=== PATIENT | male | born 1985 | race Caucasian/White ===

== ENCOUNTER 2023-11-24 21:35 | Emergency (ER) | payer BC ==
[2023-11-24 22:17] VITALS: RESP 18; TEMP 98.8
[2023-11-24] MEDS: ACETAMINOPHEN TAB 325 MG TAB PO STA (22:39)
[2023-11-24] MEDS: IBUPROFEN 800 MG TAB PO STA (22:40)
--- NOTE | 2023-11-25 01:17 | ED ---
Lower Extremity Injury HPI - General Chief Complaint: Extremity Injury, Lower Stated Complaint: R Foot Injury Time Seen by Provider: 11/24/23 22:13 Source: patient Mode of arrival: ambulatory Limitations: physical limitation - History of Present Illness Initial Comments: 38-year-old male presenting with chief complaint of toe injury. Patient dropped a 20 pound battery onto his right fourth and fifth toes. He has skin avulsions to these toes. The bleeding is controlled. His tetanus is up-to-date. No numbness tingling or weakness. He still has good range of motion. - Related Data Previous Rx's Medication Instructions Recorded Cephalexin [Keflex] 500 mg PO Q12HR 7 Days #14 cap 11/25/23 Allergies Allergy/AdvReac Type Severity Reaction Status Date / Time No Known Allergies Allergy Verified 11/24/23 22:07 Review of Systems ROS Statement: Those systems with pertinent positive or pertinent negative responses have been documented in the HPI. ROS Other: All systems not noted in ROS Statement are negative. Past Medical History Past Medical History: No Reported History History of Any Multi-Drug Resistant Organisms: None Reported Past Surgical History: No Surgical Hx Reported Smoking Status: Never smoker Past Alcohol Use History: None Reported Past Drug Use History: None Reported General Exam General appearance: alert, in no apparent distress Head exam: Present: atraumatic, normocephalic Eye exam: Present: normal appearance, EOMI Neck exam: Present: normal inspection Respiratory exam: Absent: respiratory distress Cardiovascular Exam: Present: regular rate Right Foot/Toe exam: Present: tenderness (Tenderness fourth and fifth toes), abrasion, ecchymosis Neurological exam: Present: alert, oriented X3 Psychiatric exam: Present: normal affect, normal mood Skin exam: Present: abrasion (Skin abrasion fourth and fifth toes) Course Vital Signs 11/24/23 11/25/23 21:59 01:42 Temperature 98.8 F Pulse Rate 94 82 Respiratory 18 18 Rate Blood Pressure 152/98 169/88 O2 Sat by Pulse 96 98 Oximetry Medical Decision Making - Medical Decision Making Was pt. sent in by a medical professional or institution (, [facility], WAXING MACHINE OPERATOR HELPER, urgent care, hospital, or half-way...) When possible be specific @ -No Did you speak to anyone other than the patient for history (EMS, parent, family, police, friend...)? What history was obtained from this source @ -No Did you review nursing and triage notes (agree or disagree)? Why? @ -I reviewed and agree with nursing and triage notes Were old charts reviewed (outside hosp., previous admission, EMS record, old EKG, old radiological studies, urgent care reports/EKG's, half-way records)? Report findings @ -No old charts were reviewed Differential Diagnosis (chest pain, altered mental status, abdominal pain women, abdominal pain men, vaginal bleeding, weakness, fever, dyspnea, syncope, headache, dizziness, GI bleed, back pain, seizure, CVA, palpatations, mental health, musculoskeletal)? @ -Differential includes fracture, sprain, laceration, this is not an all- inclusive list EKG interpreted by me (3pts min.). @ -As above X-rays interpreted by me (1pt min.). @ -X-ray shows fracture of the distal phalanx of the fifth toe CT interpreted by me (1pt min.). @ -None done U/S interpreted by me (1pt. min.). @ -None done What testing was considered but not performed or refused? (CT, X-rays, U/S, labs)? Why? @ -None What meds were considered but not given or refused? Why? @ -None Did you discuss the management of the patient with other professionals (professionals i.e. , PA, WAXING MACHINE OPERATOR HELPER, lab, RT, psych nurse, rn social work, machine operator transplanter, teacher, community chest officer, case management coordinator)? Give summary @ -No Was smoking cessation discussed for >3mins.? @ -No Was critical care preformed (if so, how long)? @ -No Were there social determinants of health that impacted care today? How? (Home lessness, low income, unemployed, alcoholism, drug addiction, transportation, low edu. Level, literacy, decrease access to med. care, fpc, rehab)? @ -No Was there de-escalation of care discussed even if they declined (Discuss DNR or withdrawal of care, Hospice)? DNR status @ -No What co-morbidities impacted this encounter? (DM, HTN, Smoking, COPD, CAD, Cancer, CVA, ARF, Chemo, Hep., AIDS, mental health diagnosis, sleep apnea, morbid obesity)? @ -None Was patient admitted / discharged? Hospital course, mention meds given and route, prescriptions, significant lab abnormalities, going to OR and other pertinent info. @ -38-year-old male presenting with chief complaint of toe injury. Dropped a 20 pound battery onto the right fourth and fifth toes. There are skin avulsions. Digital block performed toes are irrigated Surgifoam is applied. X- ray shows fracture of the distal phalanx of the fifth toe. The toes are denys taped together. Started on Keflex for open fracture. He is instructed to follow-up with his PCP. Follow-up with PCP. Report back to ER with any new or worsening symptoms. Discussed return parameters and answered all questions. Patient conveyed verbal understanding and agreed to the plan. I discussed this case in detail with my attending Dr. Solo Undiagnosed new problem with uncertain prognosis? @ -No Drug Therapy requiring intensive monitoring for toxicity (Heparin, Nitro, Insulin, Cardizem)? @ -No Were any procedures done? @ -No Diagnosis/symptom? @ -Toe fracture Acute, or Chronic, or Acute on Chronic? @ -Acute Uncomplicated (without systemic symptoms) or Complicated (systemic symptoms)? @ -Uncomplicated Side effects of treatment? @ -No Exacerbation, Progression, or Severe Exacerbation? @ -No Poses a threat to life or bodily function? How? (Chest pain, USA, PA, pneumonia, PE, COPD, DKA, ARF, appy, cholecystitis, CVA, Diverticulitis, Homicidal, Suicidal, threat to staff... and all critical care pts) @ -No Disposition Clinical Impression: Toe fracture Disposition: HOME SELF-CARE Condition: Good Instructions (If sedation given, give patient instructions): Toe Fracture (ED) Additional Instructions: Follow-up with your PCP. Report back to ER with any new or worsening symptoms. Prescriptions: Cephalexin [Keflex] 500 mg PO Q12HR 7 Days #14 cap Is patient prescribed a controlled substance at d/c from ED?: No Referrals: Elmer Rios DO [Primary Care Provider] - 1-2 days Time of Disposition: 01:17
--- NOTE | 2023-11-25 01:20 | XR ---
EXAM: XR Right Toes, 2 or More Views CLINICAL HISTORY: ITS.REASON XR Reason: 4th and 5th toe injury TECHNIQUE: Frontal, lateral and oblique views of the toes of the right foot. COMPARISON: No relevant prior studies available. IMPRESSION: Fracture of the distal phalanx of the fifth toe.
[2023-11-25 02:13] VITALS: BP 169/88; PULSE 82
== END 2023-11-25 02:16 | disposition home or self-care (01) ==
LOC: EC 21:35
DX: S92.911A Unspecified fracture of right toe(s), initial encounter for closed fracture (principal); X58.XXXA Exposure to other specified factors, initial encounter
CPT/HCPCS: 99283

== ENCOUNTER → 2024-01-05 | Outpatient (CLI) | payer BC ==
--- NOTE | 2024-01-07 14:03 | CA ---
Transthoracic Echo Report Name: Reece Moon Age: 38 Gender: M : 1985 Exam Date: 01/05/2024 15:28 Exam Location: [facility] Ht (in): 72 Wt (lb): 215 Ordering Physician: Elmer Rios DO Attending/Referring Phys: Elmer Rios DO Property Condition Assessor Sandrine Rogers RDCS Procedure CPT: Indications: I10 ESSENTIAL (PRIMARY) HYPERTENSION Cardiac Hx: Technical Quality: Fair Contrast 1: Total Dose (mL): Contrast 2: Total Dose (mL): MEASUREMENTS (Male / Female) Normal Values 2D ECHO LV Diastolic Diameter PLAX 3.6 cm 4.2 - 5.9 / 3.9 - 5.3 cm LV Systolic Diameter PLAX 2.9 cm IVS Diastolic Thickness 1.5 cm 0.6 - 1.0 / 0.6 - 0.9 cm LVPW Diastolic Thickness 1.5 cm 0.6 - 1.0 / 0.6 - 0.9 cm LV Relative Wall Thickness 0.8 RV Internal Dim ED PLAX 2.5 cm LA Systolic Diameter LX 3.6 cm 3.0 - 4.0 / 2.7 - 3.8 cm LV Diastolic Volume MOD BP 43.2 cm??? 67 - 155 / 56 - 104 cm??? LV Systolic Volume MOD BP 19.6 cm??? 22 - 58 / 19 - 49 cm??? LV Ejection Fraction MOD BP 54.8 % >= 55 % LV Cardiac Index MOD BP 1128.0 cm???/min???m??? LV Diastolic Volume MOD 4C 39.5 cm??? LV Systolic Volume MOD 4C 18.3 cm??? LV Ejection Fraction MOD 4C 53.6 % LV Cardiac Index MOD 4C 1009.4 cm???/min???m??? LV Diastolic Length 4C 6.5 cm LV Systolic Length 4C 5.4 cm LV Diastolic Volume MOD 2C 43.8 cm??? LV Systolic Volume MOD 2C 18.5 cm??? LV Ejection Fraction MOD 2C 57.6 % LV Cardiac Index MOD 2C 1201.9 cm???/min???m??? LV Diastolic Length 2C 7.1 cm LV Systolic Length 2C 6.4 cm LA Volume 43.9 cm??? 18 - 58 / 22 - 52 cm??? LA Volume Index 19.6 cm???/m??? 16 - 28 cm???/m??? Ascending Aorta Diameter 3.3 cm M-MODE Aortic Root Diameter MM 3.5 cm LA Systolic Diameter MM 3.7 cm LA Ao Ratio MM 1.1 DOPPLER MV Area PHT 5.2 cm??? Mitral E Point Velocity 57.2 cm/s Mitral A Point Velocity 65.9 cm/s Mitral E to A Ratio 0.9 MV Deceleration Time 147.2 ms FINDINGS Left Ventricle Left ventricular ejection fraction is estimated at 55-60%. Moderately increased septal wall thickness. Left ventricular cavity size normal. No obvious regional wall motion abnormalities. Right Ventricle Normal right ventricular size and function. Right ventricular systolic pressure within normal limits. Right ventricular hypertrophy. Right Atrium Normal right atrial size. Left Atrium Normal left atrial size. Mitral Valve Structurally normal mitral valve. Trace mitral regurgitation. Aortic Valve Trileaflet aortic valve. No aortic valve stenosis or regurgitation. Tricuspid Valve Structurally normal tricuspid valve. Trace tricuspid regurgitation. Pulmonic Valve Structurally normal pulmonic valve. Trace pulmonic regurgitation. No pulmonic stenosis. Pericardium No pericardial or pleural effusion. Aorta Normal size aortic root and proximal ascending aorta. CONCLUSIONS Normal LV size and systolic function preserved systolic function Previewed by: Dr. Nate Wiseman MD (Electronically Signed) Final Date: 07 January 2024 14:02
== END | disposition home or self-care (01) ==
LOC: RADECHMAIN 15:28
PROVIDERS: ATTEND Internal Medicine
DX: I10 Essential (primary) hypertension (principal)
CPT/HCPCS: 93306

== ENCOUNTER → 2024-06-25 | Outpatient (CLI) | payer BC ==
--- NOTE | 2024-06-25 17:15 | US ---
EXAMINATION TYPE: US scrotum with doppler. DATE OF EXAM: 06/25/2024 COMPARISON: NONE CLINICAL INDICATION: Male, 39 years old with history of N50.812 LEFT TESTICULAR PAIN; left testicle p ain TECHNIQUE: Grayscale, color Doppler and spectral Doppler imaging of the scrotum. FINDINGS: EXAM MEASUREMENTS: TESTICLES: Right Testicle: 3.7 x 2.2 x 3.6 cm Left Testicle: 4.6 x 2.0 x 3.2 cm EPIDIDYMIS HEAD: Right Epididymis: 1.5 cm Left Epididymis: 1.3 cm Doppler performed to assess for testicular vascularity; good bilateral color flow and spectral wavefo [place] are seen. There is no evidence of testicular torsion. Presence of hydroceles: yes, fluid collection lateral to right testicle = 3.9cm Presence of varicoceles: yes, bilaterally *Anechoic lesion left epididymis = 1.3cm IMPRESSION: 1. No evidence for intratesticular mass. 2. Appropriate arterial and venous spectral waveforms to the testes. 3. Small right hydrocele. 4. Bilateral varicocele. [facility], Workstation: [id number], 06/25/2024 5:13 PM
== END | disposition home or self-care (01) ==
LOC: RADUSWWP 16:36
PROVIDERS: ATTEND Internal Medicine
DX: N50.812 Left testicular pain (principal); I86.1 Scrotal varices; N43.3 Hydrocele, unspecified
CPT/HCPCS: 76870; 93975